=== PATIENT | female | born 1960 | race Caucasian/White ===

== ENCOUNTER → 2016-11-26 | Outpatient (CLI) | payer OTHER ==
[~2016-11-26] MED LIST: COZA100T2 PO; FISH100049 PO; LUTE20TA PO
--- NOTE | 2016-11-26 13:55 | REPMRS ---
Patient History The patient states she had a clinical breast exam in 04/05 Patient is postmenopausal. No known family history of cancer. Took hormonal contraceptives for 3 years. Took unspecified hormones for 6 months. Digital Woman Screen Mammo: November 26, 2016 - Exam #: [id number] Bilateral CC and MLO view(s) were taken. Technologist: Krystyna Armstrong, Technologist Prior study comparison: November 04, 2015, digital woman screen mammo performed at [facility]. October 25, 2014, bilateral bilat screen digital mammo, performed at [facility] ([facility] FINDINGS: There are scattered fibroglandular densities. There has been no change in the appearance of the mammogram from the prior studies. There is a mild amount of residual fibroglandular tissue which is fairly symmetric. There is no interval development of dominant mass, architectural distortion, or clustered microcalcification suggestive of malignancy. ASSESSMENT: BI-RADS/ACR category 1 mammogram. Negative. Recommendation Routine screening mammogram in 1 year (for women over age 40). This mammogram was interpreted with the aid of an FDA-approved computer-aided dectection system. Electronically Signed By: Cresencio Choi MD 11/26/16 5180
== END ==
LOC: M WHC 13:05
PROVIDERS: ATTEND Physician Assistant
DX: Z12.31 Encounter for screening mammogram for malignant neoplasm of breast (principal)

== ENCOUNTER → 2017-11-28 | Outpatient (CLI) | payer OTHER | LOC: M WHC 08:00 | DX: Z12.31 Encounter for screening mammogram for malignant neoplasm of breast (principal); M85.80 Other specified disorders of bone density and structure, unspecified site ==

== ENCOUNTER → 2019-01-02 | Outpatient (CLI) | payer OTHER ==
--- NOTE | 2019-01-02 10:03 | REPMRS ---
Patient History The patient states she had a clinical breast exam in 12/09 No known family history of cancer. Took hormonal contraceptives for 3 years. Took unspecified hormones for 6 months. 3D TOMOSYNTHESIS WAS PERFORMED. Digital Woman Screen Mammo: January 02, 2019 - Exam #: [id number] Bilateral CC and MLO view(s) were taken. Technologist: Krystyna Armstrong, Technologist Prior study comparison: November 28, 2017, digital woman screen mammo performed at [facility]. November 26, 2016, digital woman screen mammo performed at [facility]. FINDINGS: The breast tissue is heterogeneously dense. This may lower the sensitivity of mammography. There has been no change in the appearance of the mammogram from the prior studies. There is a moderate amount of residual fibroglandular tissue which is fairly symmetric. There is no interval development of dominant mass, areas of architectural distortion, or clustered microcalcification typical of malignancy. Assessment: BI-RADS/ACR category 1 mammogram. Negative Mammogram. Recommendation Routine screening mammogram in 1 year (for women over age 40). This mammogram was interpreted with the aid of an FDA-approved computer-aided dectection system. Electronically Signed By: Cresencio Choi MD 01/02/19 0864
== END ==
LOC: M WHC 07:32
PROVIDERS: ATTEND Nurse Practitioner Adult Health
DX: Z12.31 Encounter for screening mammogram for malignant neoplasm of breast (principal)

== ENCOUNTER 2019-03-20 07:25 | Day surgery (SDC) | payer OTHER ==
[~2019-03-20] VITALS: Ht 170.2 cm; Wt 74.4 kg
[~2019-03-20 07:25] MED LIST changes: +B-122500 PO; +CVS400LI PO; +L-LY500T9 PO; +LOSA100T50 PO; +OCUV1CAP4 PO; +SUPETAB56 PO
[2019-03-20] MEDS ORDERED: NS 1,000 ML IV ONE (08:15)
[2019-03-20] MEDS ORDERED: LIDOCAINE 2% INJ 100 MG/5 ML SDV (FOR ANES.) As Ordered ONE (09:07)
[2019-03-20] MEDS ORDERED: PROPOFOL 200 MG/20 ML VIAL As Ordered ONE (09:07)
--- NOTE | 2019-03-20 09:34 | ROOR ---
Patient Name: Lana Bonilla Procedure Date: 03/20/2019 9:14 AM Date of : 1960 Age: 58 Room: [facility]AC, [facility]IN [facility] Gender: Female Note Status: Finalized Procedure: Colonoscopy Indications: High risk colon cancer surveillance: Personal history of colonic polyps, Last colonoscopy: December 2015 Providers: Carroll ENRIQUE MD Referring MD: Krystyna CASTILLO NP Requesting Provider: Medicines: Monitored Anesthesia Care Complications: No immediate complications. Procedure: Pre-Anesthesia Assessment: - The heart rate, respiratory rate, oxygen saturations, blood pressure, adequacy of pulmonary ventilation, and response to care were monitored throughout the procedure. The Colonoscope was introduced through the anus and advanced to the terminal ileum, with identification of the appendiceal orifice and IC valve. The colonoscopy was performed without difficulty. The patient tolerated the procedure well. The quality of the bowel preparation was adequate and fair. Findings: The perianal and digital rectal examinations were normal. Multiple medium-mouthed diverticula were found in the sigmoid colon. Internal hemorrhoids were found during retroflexion. The hemorrhoids were medium-sized. The exam was otherwise without abnormality on direct and retroflexion views. Impression: - Preparation of the colon was fair. - Diverticulosis in the sigmoid colon. - Internal hemorrhoids. - The examination was otherwise normal on direct and retroflexion views. - No specimens collected. Recommendation: - Repeat colonoscopy in 5 years for surveillance. Carroll Enrique MD Carroll ENRIQUE MD 03/20/2019 9:34:16 AM Electronically signed by Carroll ENRIQUE MD Number of Addenda: 0 Note Initiated On: 03/20/2019 9:14 AM Estimated Blood Loss: Estimated blood loss: none.
[2019-03-20 10:00] VITALS: BP 130/95
== END 2019-03-20 10:08 | disposition home or self-care (01) ==
LOC: M OPP 07:25
PROVIDERS: ATTEND Internal Medicine Gastroenterology
DX: Z12.11 Encounter for screening for malignant neoplasm of colon (principal); Z86.010 Personal history of colon polyps; K64.8 Other hemorrhoids; K57.30 Diverticulosis of large intestine without perforation or abscess without bleeding; I10 Essential (primary) hypertension; Z79.899 Other long term (current) drug therapy; Z88.2 Allergy status to sulfonamides; Z80.51 Family history of malignant neoplasm of kidney

== ENCOUNTER → 2019-05-02 | Outpatient (REF) | payer OTHER ==
[2019-05-05 15:14] LABS: HPV HYBRID CAPTURE II Negative (Negative)
== END ==
LOC: M LAB LCGH 11:51
PROVIDERS: ATTEND Family Medicine
DX: Z12.4 Encounter for screening for malignant neoplasm of cervix (principal)
CPT/HCPCS: 87624; G0123

== ENCOUNTER → 2020-01-04 | Outpatient (CLI) | payer BC ==
--- NOTE | 2020-01-04 09:01 | REPMRS ---
Patient History The patient states she had a clinical breast exam in March 2019.No known family history of cancer. Took hormonal contraceptives for 3 years. Took unspecified hormones for 6 months. Digital Woman Screen Mammo: January 04, 2020 - Exam #: [id number] Bilateral CC and MLO view(s) were taken. Technologist: Sarina Miller, Technologist Prior study comparison: January 02, 2019, bilateral digital woman screen mammo performed at [facility]. November 28, 2017, digital woman screen mammo performed at [facility]. November 26, 2016, digital woman screen mammo performed at [facility]. FINDINGS: There are scattered fibroglandular densities. There has been no change in the appearance of the mammogram from the prior studies. There is a mild amount of scattered fibroglandular density which is fairly symmetric. There is no interval development of dominant mass, architectural distortion, or grouped microcalcification suggestive of malignancy. 3-D tomosynthesis shows no additional findings. Assessment: BI-RADS/ACR category 1 mammogram. Negative Mammogram. Recommendation Routine screening mammogram of both breasts in 1 year (for women over age 40). This patient's Lifetime Breast Cancer Risk is estimated at 7.1 %. This mammogram was interpreted with the aid of an FDA-approved computer-aided dectection system. Electronically Signed By: Greg Sullivan MD 01/04/20 0901
== END ==
LOC: M WHC 08:04
PROVIDERS: ATTEND Nurse Practitioner Family
DX: Z12.31 Encounter for screening mammogram for malignant neoplasm of breast (principal)

== ENCOUNTER → 2021-02-17 | Outpatient (CLI) | payer BC ==
--- NOTE | 2021-02-17 10:05 | REPMRS ---
Patient History The patient states she has not had a clinical breast exam in over a year. No known family history of cancer. Took hormonal contraceptives for 3 years. Took unspecified hormones for 6 months. Digital Woman Screen Mammo: February 17, 2021 - Exam #: [id number] Bilateral CC and MLO view(s) were taken. Technologist: Kasia Allison, Technologist Prior study comparison: January 04, 2020, bilateral digital woman screen mammo performed at [facility]. January 02, 2019, bilateral digital woman screen mammo performed at [facility]. November 28, 2017, digital woman screen mammo performed at [facility]. FINDINGS: There are scattered fibroglandular densities. The Volpara volumetric breast density category is:B. There has been no change in the appearance of the mammogram from the prior studies. There is a mild amount of scattered fibroglandular density which is fairly symmetric. There is no interval development of dominant mass, architectural distortion, or grouped microcalcification suggestive of malignancy. 3-D tomosynthesis shows no additional findings. Assessment: BI-RADS/ACR category 1 mammogram. Negative Mammogram. Recommendation Routine screening mammogram of both breasts in 1 year (for women over age 40). This patient's [facility] Lifetime Breast Cancer Risk is estimated at 6.9 %. This mammogram was interpreted with the aid of an FDA-approved computer-aided dectection system. Electronically Signed By: Greg Sullivan MD 02/17/21 5195
== END ==
LOC: M WHC 08:35
PROVIDERS: ATTEND Nurse Practitioner Family
DX: Z12.31 Encounter for screening mammogram for malignant neoplasm of breast (principal)

== ENCOUNTER → 2022-03-30 | Outpatient (CLI) | payer OTHER ==
[~2022-03-30] MED LIST changes: +L-LY500T23 PO; -L-LY500T9 PO; +LOSA100T45 PO; -LOSA100T50 PO
== END ==
LOC: M WHC 08:22
PROVIDERS: ATTEND Nurse Practitioner Family
DX: Z12.31 Encounter for screening mammogram for malignant neoplasm of breast (principal)

== ENCOUNTER → 2022-11-26 | Outpatient (CLI) | payer OTHER ==
[~2022-11-26] MED LIST changes: +GASTROGRAFIN SOLUTION 30ML As Ordered ONE; +ISOVUE-370 76% 100ML VIAL As Ordered ONE
== END ==
LOC: M RAD 15:15
PROVIDERS: ATTEND Physician Assistant Medical
DX: R10.32 Left lower quadrant pain (principal); K57.30 Diverticulosis of large intestine without perforation or abscess without bleeding

== ENCOUNTER → 2022-12-23 | Outpatient (CLI) | payer BC, OTHER, SELFPAY ==
[~2022-12-23] MED LIST changes: +D-50CAP PO; -GASTROGRAFIN SOLUTION 30ML As Ordered ONE; -ISOVUE-370 76% 100ML VIAL As Ordered ONE
== END ==
LOC: M LABSMTC 11:01
PROVIDERS: ATTEND Anesthesiology
DX: Z01.812 Encounter for preprocedural laboratory examination (principal); Z20.822 Contact with and (suspected) exposure to COVID-19

== ENCOUNTER 2022-12-28 07:34 | Day surgery (SDC) | payer OTHER ==
[~2022-12-28] VITALS: Ht 170.2 cm; Wt 76.2 kg
[~2022-12-28 07:34] MED LIST changes: +NS 1,000 ML IV ONE
[2022-12-28] MEDS ORDERED: LIDOCAINE 2% 100MG/5ML SDV (FOR ANES.) As Ordered ONE (08:33)
[2022-12-28] MEDS ORDERED: propofoL 200 MG/20 ML VIAL As Ordered ONE (08:33)
[2022-12-28] MEDS ORDERED: LABETALOL 100MG/20ML VIAL As Ordered ONE (08:41)
[2022-12-28 09:15] VITALS: BP 145/87
== END 2022-12-28 09:31 | disposition home or self-care (01) ==
LOC: M OPP 07:34
PROVIDERS: ATTEND Internal Medicine Gastroenterology
DX: K63.5 Polyp of colon (principal); K57.30 Diverticulosis of large intestine without perforation or abscess without bleeding; K57.32 Diverticulitis of large intestine without perforation or abscess without bleeding; K64.8 Other hemorrhoids; Z86.010 Personal history of colon polyps; Z79.899 Other long term (current) drug therapy; Z88.2 Allergy status to sulfonamides; Z80.51 Family history of malignant neoplasm of kidney